=== PATIENT | male | born 1940 | race Caucasian/White ===

== ENCOUNTER 2021-02-05 12:17 | Emergency (ER) | payer MEDICARE, OTHER ==
[~2021-02-05] VITALS: Ht 190.5 cm; Wt 98.6 kg
--- NOTE | 2021-02-05 13:02 | RAD ---
3 view study of the left knee Clinical indications: Left knee pain and swelling FINDINGS: No acute fracture or dislocation or lytic process is seen. There is moderate joint space na rrowing and spurring of the medial tibiofemoral joint compartment. Mild joint space narrowing and spu rring of the lateral tibial femoral joint compartment is seen. There is moderate spurring and severe joint space narrowing of the patellofemoral joint compartment. No significant left knee joint effusio n is seen. There is calcification of the suprapatellar recess. This may be seen with CPPD. Radiopaque loose body is seen within the posterior tibiofemoral joint compartment measuring 10 mm as seen in th e lateral view. 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 No acute fracture. Electronically signed by: Tobias Bose MD (02/05/2021 1:00 PM) [id number]
--- NOTE | 2021-02-05 13:21 | PHYS DOC ---
Past History Past Medical History: High Cholesterol, Other Additional Past Medical Histor: BLOOD CLOTS Past Surgical History: No Surgical History Alcohol Use: Occasionally General Adult EDM: Chief Complaint: MECHANICAL FALL HPI: HPI: Patient is a male presenting with left knee pain and swelling. Patient states he was trying to stop and try to skip 1+ his footing and fell forward landing on the front of his knee. He is able ambulate with pain. No other injuries. Patient is on anticoagulation. Review of Systems: Review of Systems: All other systems within normal limits except for as noted in the HPI Allergies: Allergies: Allergies Coded Allergies Type Severity Reaction Last Updated Verified No Known Drug Allergies 02/05/21 No Physical Exam: PE: Constitutional: Well developed, well nourished, no acute distress, non-toxic ella earance. [] HENT: Normocephalic, atraumatic, bilateral external ears normal, nose normal. [] Eyes: PERRLA, conjunctiva normal, no discharge. [] Neck: No rigidity, supple, no stridor. [] Cardiovascular: Regular rate and rhythm, brisk cap refill [] Lungs & Thorax: Non labored symmetric respirations, no tachypnea or respiratory distress [] Abdomen: Soft, nondistended. Skin: Warm, dry, no erythema, no rash. [] Back: Unremarkable Extremities: No deformities, range of motion grossly intact, no lower extremity edema. Left knee swelling, no deformity or crepitus [] Neurologic: Alert and oriented X 3, no focal deficits noted. [] Psychologic: Affect normal, judgement normal, mood normal. [] Current Patient Data: Vital Signs: Vital Signs Date Time Temp Pulse Resp B/P (MAP) Pulse Ox O2 Delivery O2 Flow Rate FiO2 02/05/21 12:20 98.0 76 20 115/82 (93) 99 Room Air EKG: EKG: [] Radiology/Procedures: Radiology/Procedures: 3 view study of the left knee Clinical indications: Left knee pain and swelling FINDINGS: No acute fracture or dislocation or lytic process is seen. There is moderate joint space narrowing and spurring of the medial tibiofemoral joint compartment. Mild joint space narrowing and spurring of the lateral tibial femoral joint compartment is seen. There is moderate spurring and severe joint space narrowing of the patellofemoral joint compartment. No significant left knee joint effusion is seen. There is calcification of the suprapatellar recess. This may be seen with CPPD. Radiopaque loose body is seen within the posterior tibiofemoral joint compartment measuring 10 mm as seen in the lateral view. 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 No acute fracture. [] Heart Score: C/O Chest Pain: No Risk Factors: Risk Factors: DM, Current or recent (<one month) smoker, HTN, HLP, family history of CAD, obesity. Risk Scores: Score 0 - 3: 2.5% MACE over next 6 weeks - Discharge Home Score 4 - 6: 20.3% MACE over next 6 weeks - Admit for Clinical Observation Score 7 - 10: 72.7% MACE over next 6 weeks - Early Invasive Strategies Course & Med Decision Making: Course & Med Decision Making Pertinent Labs and Imaging studies reviewed. (See chart for details) [] Dragon Disclaimer: Dragon Disclaimer: This electronic medical record was generated, in whole or in part, using a voice recognition dictation system. Departure Departure: Impression: Primary Impression: Contusion of left knee Disposition: HOME / SELF CARE / HOMELESS Condition: STABLE Referrals: PCP,UNKNOWN (PCP) Patient Instructions: Knee Wraps (Elastic Bandage) and COBY DOAN MD February 05, 2021 13:21
[2021-02-05 13:33] VITALS: BP 101/42
== END 2021-02-05 14:01 | disposition home or self-care (01) ==
LOC: ER 12:17
DX: S80.02XA Contusion of left knee, initial encounter (principal); E78.00 Pure hypercholesterolemia, unspecified; W18.39XA Other fall on same level, initial encounter; Y93.89 Activity, other specified; Y92.89 Other specified places as the place of occurrence of the external cause; Y99.8 Other external cause status
CPT/HCPCS: 73562; 99283

== ENCOUNTER → 2021-02-21 | Outpatient (CLI) | payer MEDICARE, OTHER ==
[2021-02-05 13:33] VITALS: BP 101/42
--- NOTE | 2021-02-21 13:59 | RAD ---
CT Head without contrast 02/21/2021 11:25 AM Indication: Fall, head trauma: Comparison: None Findings: No intracranial hemorrhage is seen. No evidence of acute territorial infarct is seen. Note that CT is limited in sensitivity for acute ischemia. Prominent Age-related atrophic changes are note d. There is patchy periventricular and deep white matter hypoattenuation which is nonspecific, but mo st commonly relates to chronic small vessel disease. No abnormal extra axial fluid collection is cesia ntified. No mass effect or midline shift is seen. No acute osseous abnormalities are seen. Impression: 1. No acute intracranial process identified 2. Age-related atrophy, and evidence of chronic small vessel disease as described CT DOSING PQRS STATEMENT: One or more of the following individualized dose reduction techniques were utilized for this examinat ion: 1. Automated exposure control 2. Adjustment of the mA and/or kV according to patient size 3. Use of iterative reconstruction technique Electronically signed by: Anthony Vargas MD (02/21/2021 1:56 PM) [id number]
== END ==
LOC: CT 11:02
PROVIDERS: ATTEND Internal Medicine
DX: G31.9 Degenerative disease of nervous system, unspecified (principal); Z91.81 History of falling
CPT/HCPCS: 70450

== ENCOUNTER 2021-07-26 10:25 | Emergency (ER) | payer MEDICARE, OTHER ==
[~2021-07-26] VITALS: Ht 190.5 cm; Wt 98.6 kg
--- NOTE | 2021-07-26 10:44 | PHYS DOC ---
Past History Past Medical History: Diabetes, High Cholesterol, Other Additional Past Medical Histor: BLOOD CLOTS Past Surgical History: No Surgical History Alcohol Use: Occasionally Adult General HPI HPI Patient is a 80-year-old male patient with history of blood clots, factor V presenting to the ED today to be evaluated for on Coumadin, diabetes type 2, high cholesterol, dizziness and dehydration. Patient's is doing most of the speaking, she states they were at the PCPs office today for a B12 shot, patient became dizzy and diaphoretic and was sent to the ED. states patient has not multiple B12 shots and has never had similar symptoms. Patient denies any chest pain, shortness of breath. Denies any fever coughing or congestion. Denies any headache. Review of Systems Review of Systems Constitutional: Reports dehydration. Denies fever or chills [] Eyes: Denies change in visual acuity, redness, or eye pain [] HENT: Denies nasal congestion or sore throat [] Respiratory: Denies cough or shortness of breath [] Cardiovascular: No additional information not addressed in HPI [] GI: Denies abdominal pain, nausea, vomiting, bloody stools or diarrhea [] : Denies dysuria or hematuria [] Musculoskeletal: Denies back pain or joint pain [] Integument: Denies rash or skin lesions [] Neurologic: Reports dizziness. Denies headache, focal weakness or sensory changes [] All other systems were reviewed and found to be within normal limits, except as documented in this note. Allergies Allergies Allergies Coded Allergies Type Severity Reaction Last Updated Verified No Known Drug Allergies 02/05/21 No Physical Exam Physical Exam Constitutional: Well developed, well nourished, no acute distress, non-toxic appearance. [] HENT: Normocephalic, atraumatic, bilateral external ears normal, oropharynx moist, no oral exudates, nose normal. [] Eyes: PERRLA, EOMI, conjunctiva normal, no discharge. [] Neck: Normal range of motion, no tenderness, supple, no stridor. [] Cardiovascular:Heart rate regular rhythm Lungs & Thorax: Bilateral breath sounds clear to auscultation [] Abdomen: Bowel sounds normal, soft, no tenderness, no masses, no pulsatile masses. [] Skin: Warm, dry, no erythema, no rash. [] Back: No tenderness, no CVA tenderness. [] Extremities: No tenderness, no cyanosis, no clubbing, ROM intact, no edema. [] Neurologic: Alert and oriented X 3, normal motor function, normal sensory function, no focal deficits noted. Cranial nerves II through XII intact Psychologic: Affect normal, judgement normal, mood normal. [] EKG EKG [address] Rivas sinus tachycardia heart rate 115 no STEMI Radiology/Procedures Radiology/Procedures []PROCEDURE: CT HEAD WO CONTRAST EXAM: Head CT without contrast. HISTORY: Dizziness. TECHNIQUE: Computed tomographic images of the head were obtained without contrast. *One or more of the following individualized dose reduction techniques were utilized for this examination: 1. Automated exposure control. 2. Adjustment of the mA and/or kV according to patient size. 3. Use of iterative reconstruction technique. COMPARISON: 02/21/2021. FINDINGS: There is no acute or subacute extra-axial or intraparenchymal hemorrhage. There is no mass effect or midline shift. There is no hydrocephalus. There are areas of decreased attenuation within the cerebral white matter, nonspecific and likely related to chronic small vessel disease. There is cerebral volume loss. There may be a small chronic infarct within the left parietal lobe. There is left ethmoid sinus mucosal thickening. The mastoid air cells are clear. There is no suspicious calvarial lesion. IMPRESSION: 1. No acute intracranial finding. MRI is more sensitive for acute infarction. 2. Bilateral cerebral white matter changes, likely due to chronic small vessel disease. There may be superimposed chronic infarct within the left parietal lobe. 3. Cerebral atrophy. Electronically signed by: Debi Mabry MD (07/26/2021 11:28 AM) [id number] DICTATED AND SIGNED BY: DEBI MABRY MD DATE: 07/26/21 1126 CC: IRENE HSIEH APRN; DEMI LEOS MD ~MTH0 0 PROCEDURE: PORTABLE CHEST 1V EXAM: Chest, single view. HISTORY: Dizziness. COMPARISON: None. FINDINGS: A frontal view of the chest obtained. There is diffuse increased interstitial opacity likely due to chronic interstitial changes. There is figueroa perimposed bilateral lower lobe atelectasis or scarring. There is no pleural effusion or pneumothorax. There are nodular opacities overlying the right thorax due to callus formation surrounding a healed or healing rib fractures. There is a prominent cardiac silhouette. IMPRESSION: Chronic appearing interstitial changes with suspected lower lobe atelectasis or scarring. Electronically signed by: Debi Mabry MD (07/26/2021 11:26 AM) [id number] DICTATED AND SIGNED BY: DEBI MABRY MD DATE: 07/26/21 1125 CC: IRENE HSIEH APRN; DEMI LEOS MD ~MTH0 0 Heart Score C/O Chest Pain: N/A Risk Factors: Risk Factors: DM, Current or recent (<one month) smoker, HTN, HLP, family history of CAD, obesity. Risk Scores: Risk Factors: DM, Current or recent (<one month) smoker, HTN, HLP, family history of CAD, obesity. Course & Med Decision Making Course & Med Decision Making Pertinent Labs and Imaging studies reviewed. (See chart for details) This is a 80-year-old male patient presented to the ED to be evaluated for dehydration and dizziness. Patient was at the PCPs office for B12 shot, did state he became dizzy and diaphoretic and was sent to the ED to be evaluated for dehydration. CT of the head, chest [id number] by radiologist were negative for any acute findings. CBC with hemoglobin of 12.8, hematocrit 39.2. Platelet count 113. CMP with potassium of 5.3. Magnesium was 1.6, patient was given IV magnesium in the ED. Glucose 157, creatinine 1.4, BUN 25. UA noted for dehydration. Patient has no previous visits with labs to compare His BP was as low as 90/60 with a heart rate of 112, he was given IV fluids, BP has come down 114/72. Heart rate still runs in the low 100s. History of A. fib. Patient himself is a poor historian, unable to tell if he took his A. fib medicine this morning. is not present right now. Patient feeling better after IV fluids and requesting to go home. He will be given a road test/walking exercise in the ED if he passes he goes home Dragon Disclaimer Dragon Disclaimer This electronic medical record was generated, in whole or in part, using a voice recognition dictation system. Departure Departure: Impression: Primary Impression: Dehydration Additional Impression: Hypotension Disposition: HOME / SELF CARE / HOMELESS Condition: STABLE Referrals: DEMI LEOS MD (PCP) follow up next week Patient Instructions: Dehydration, Adult, [id number], Hypotension, [id number] Additional Instructions: You were evaluated in the emergency room for dehydration. We encourage you at home to change positions slowly and continue pushing fluids. Please follow-up with your primary care doctor next week. Come back to the ED at any point symptoms worsen Problem Qualifiers Additional Impression: Hypotension Hypotension type: unspecified hypotension type Qualified Codes: I95.9 - Hypotension, unspecified IRENE HSIEH SPECIAL EDUCATION TUTOR Jul 26, 2021 10:44
[2021-07-26] MEDS ORDERED: IV NORMAL SALINE 1,000ML 1,000 ML IV ONE (10:45)
--- NOTE | 2021-07-26 11:29 | RAD ---
EXAM: Chest, single view. HISTORY: Dizziness. COMPARISON: None. FINDINGS: A frontal view of the chest obtained. There is diffuse increased interstitial opacity likel y due to chronic interstitial changes. There is superimposed bilateral lower lobe atelectasis or scar ring. There is no pleural effusion or pneumothorax. There are nodular opacities overlying the right t horax due to callus formation surrounding a healed or healing rib fractures. There is a prominent car diac silhouette. IMPRESSION: Chronic appearing interstitial changes with suspected lower lobe atelectasis or scarring. Electronically signed by: Debi Ross MD (07/26/2021 11:26 AM) [id number]
--- NOTE | 2021-07-26 11:30 | RAD ---
EXAM: Head CT without contrast. HISTORY: Dizziness. TECHNIQUE: Computed tomographic images of the head were obtained without contrast. *One or more of the following individualized dose reduction techniques were utilized for this examina tion: 1. Automated exposure control. 2. Adjustment of the mA and/or kV according to patient size. 3. Use of iterative reconstruction technique. COMPARISON: 02/21/2021. FINDINGS: There is no acute or subacute extra-axial or intraparenchymal hemorrhage. There is no mass effect or midline shift. There is no hydrocephalus. There are areas of decreased attenuation within the cerebral white matter, nonspecific and likely rel ated to chronic small vessel disease. There is cerebral volume loss. There may be a small chronic inf arct within the left parietal lobe. There is left ethmoid sinus mucosal thickening. The mastoid air cells are clear. There is no suspicio us calvarial lesion. IMPRESSION: 1. No acute intracranial finding. MRI is more sensitive for acute infarction. 2. Bilateral cerebral white matter changes, likely due to chronic small vessel disease. There may be superimposed chronic infarct within the left parietal lobe. 3. Cerebral atrophy. Electronically signed by: Debi Ross MD (07/26/2021 11:28 AM) [id number]
[2021-07-26 12:08] LABS: BASO % 0 % (0-3); EOS # 0.1 x10^3/uL (0.0-0.7); EOS % 1 % (0-3); HEMATOCRIT 39.2 % (39.0-53.0); HEMOGLOBIN 12.8 g/dL (13.0-17.5); LYMPH # 1.3 x10^3/uL (1.0-4.8); LYMPH % 13 % (24-48); MEAN CORPUSCULAR HEMOGLOBIN 30 pg (25-35); MEAN CORPUSCULAR HGB CONC 33 g/dL (31-37); MEAN CORPUSCULAR VOLUME 92 fL (79-100); MONO # 0.6 x10^3/uL (0.0-1.1); MONO % 6 % (0-9); NEUT # 8.1 x10^3uL (1.8-7.7); NEUT % 81 % (31-73); PLATELET COUNT 113 x10^3/uL (140-400); RED BLOOD COUNT 4.24 x10^6/uL (4.30-5.70); RED CELL DISTRIBUTION WIDTH 13.5 % (11.5-14.5)
[2021-07-26 12:11] LABS: ANION GAP 12 (6-14); BLOOD UREA NITROGEN 25 mg/dL (8-26); BUN/CREATININE RATIO 18 (6-20); CALCIUM 8.9 mg/dL (8.5-10.1); CARBON DIOXIDE 24 mmol/L (21-32); CHLORIDE 108 mmol/L (98-107); CREATININE 1.4 mg/dL (0.7-1.3); GFR 48.9; GLUCOSE 157 mg/dL (70-99); POTASSIUM 5.3 mmol/L (3.5-5.1); SODIUM 144 mmol/L (136-145)
[2021-07-26 12:22] LABS: ALBUMIN 3.2 g/dL (3.4-5.0); ALBUMIN/GLOBULIN RATIO 0.9 (1.0-1.7); ALK PHOS 71 U/L (46-116); ALT (SGPT) 18 U/L (16-63); AST (SGOT) 17 U/L (15-37); MAGNESIUM 1.6 mg/dL (1.8-2.4); TOTAL BILIRUBIN 0.5 mg/dL (0.2-1.0); TOTAL PROTEIN 6.6 g/dL (6.4-8.2)
[2021-07-26] MEDS ORDERED: MAGNESIUM SULFATE 1GM 100 ML IV ONE (13:00)
[2021-07-26 13:46] LABS: GLUCOSE,URINE NEG (NEG); NITRITE,URINE NEG (NEG); UROBILINOGEN,URINE 0.2 mg/dL (0.2 mg/dL)
[2021-07-26 13:47] LABS: BACTERIA,URINE FEW /HPF (0-FEW); BILIRUBIN,URINE SMALL (NEG); CLARITY,URINE HAZY; COLOR,URINE YELLOW; HYALINE CASTS, URINE MOD /HPF; RBC,URINE 0 /HPF (0-2); SQUAMOUS EPITHELIAL CELL,UR FEW /LPF; WBC,URINE OCC /HPF (0-4)
[2021-07-26 15:02] VITALS: BP 116/54
--- NOTE | 2021-07-26 19:23 | EKG ---
[address] [address] Test Date: 2021-07-26 Test Time: 10:49:32 Pat Name: SHUN CROOKS Department: Room: Gender: M Shredder Picker: : [phone] Requested By: IRENE HSIEH Order Number: [id number] Reading MD: Maximino Muir Measurements Intervals [place] Rate: 115 P: MO: QRS: -42 QRSD: 140 T: 137 QT: 340 QTc: 472 Interpretive Statements SINUS TACHYCARDIA ABNORMAL LEFT AXIS DEVIATION LEFT BUNDLE BRANCH BLOCK ABNORMAL ECG RI6.02 No previous ECG available for comparison Electronically Signed On 07-29-2021 9:22:36 TURN DOWN MAN by Maximino Muir
== END 2021-07-26 15:22 | disposition home or self-care (01) ==
LOC: ER 10:25
DX: E86.0 Dehydration (principal); I95.9 Hypotension, unspecified; R42 Dizziness and giddiness; E11.9 Type 2 diabetes mellitus without complications; E78.5 Hyperlipidemia, unspecified
CPT/HCPCS: 36415; 70450; 71045; 80053; 81001; 82553; 83735; 84484; 85025; 85610; 85730; 93005; 96361; 96365; 99284; J3475; J7030